=== PATIENT | female | born 1970 | race Hispanic/Latino ===

== ENCOUNTER 2016-10-08 23:11 | Emergency (ER) | payer MEDICARE, MEDICAID ==
[~2016-10-08] VITALS: Ht 154.9 cm; Wt 68.2 kg
[~2016-10-08 23:11] MED LIST: ATEN50TA7 PO; EFF375 PO; GLPZ10T PO; HYDR1TAB69 PO; INSU100V8 IJ; LORA10CA PO; METF-488 PO; MTC10T1 PO; OMEP20TA86 PO; PRA20 PO; ProAirHFA INH; ZLP10T PO; [UNRECOGNIZED DRUG - OTHER] SUBQ
[2016-10-08 23:27] VITALS: BP 122/81; PULSE 99; RESP 22; O2SAT 100
[2016-10-08 23:51] VITALS: BP 117/77; RESP 15; O2SAT 100
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
[2016-10-09] MEDS ORDERED: 0.9% Sodium Chloride 1,000 ML IV ONE ×2 (00:13→01:36)
[2016-10-09] MEDS ORDERED: Ondansetron 2 mg/mL 2 mL Inj IVPUSH ONE (00:15)
[2016-10-09 00:22] LABS: BASOPHILS % (AUTO) 0.9 % (0-3); EOSINOPHILS % (AUTO) 2.3 % (0-5); Mean Corpuscular Hemoglobin 29.5 pg (27.0-35.0); Mean Corpuscular Volume 83.7 fL (81-100); NEUTROPHILS % (AUTO) 61.5 % (40-74); Platelet Count 205 bil/L (150-400)
[2016-10-09 00:45] LABS: Magnesium 2.2 mg/dL (1.6-2.6)
[2016-10-09] MEDS ORDERED: Insulin Human REGular-Omnicell 100 Unit/mL IV ONE (01:15)
[2016-10-09] MEDS ORDERED: Ketorolac 15 mg/mL Inj IVPUSH ONE ×2 (01:40→02:20)
[2016-10-09] MEDS ORDERED: Haloperidol 5 mg/mL Inj IV ONE (01:40)
[2016-10-09 01:43] VITALS: BP 132/75; PULSE 90; RESP 14; O2SAT 100
[2016-10-09 01:43] LABS: APPEARANCE,URINE HAZY (CLEAR,HAZY); COLOR,URINE STRAW (YELLOW); OCCULT BLOOD,URINE TRACE (NEGATIVE); UROBILINOGEN,URINE NORMAL (NORMAL); YEAST,URINE MODERATE (NONE SEEN)
[2016-10-09] MEDS ORDERED: 0.9% Sodium Chloride 50 ML ONE (02:20)
[2016-10-09] MEDS ORDERED: MetoCLOpramide 5 mg/mL 2 mL Inj IM ONE (02:20)
[2016-10-09] MEDS ORDERED: Insulin Human REGular 300 Unit/3 mL Inj IV SCH (02:45)
[2016-10-09 03:39] VITALS: BP 125/66; PULSE 96; RESP 15; O2SAT 100
[2016-10-09 03:48] VITALS: BP 125/66; PULSE 96; RESP 15; O2SAT 100
--- NOTE | 2016-10-09 09:31 | DRSVH ---
PROCEDURE: X-RAY CHEST ONE VIEW, PORTABLE ([id number]) INDICATIONS: sob TECHNIQUE: One view of the chest was acquired. COMPARISON: None. FINDINGS: Surgical changes and devices: None. Lungs and pleura: No pleural effusions or pneumothorax. Lungs are clear. Mediastinum: Mediastinal contours appear normal. Heart size is normal. Bones and chest wall: No suspicious bony lesions. Overlying soft tissues appear unremarkable. IMPRESSION: 1. No acute cardiopulmonary disease. Dictated by: Tito Kwon M.D. on 10/09/2016 at 9:29 Approved by: Tito Kwon M.D. on 10/09/2016 at 9:29
== END 2016-10-09 03:49 | disposition home or self-care (01) ==
LOC: SED 23:11
DX: E11.65 Type 2 diabetes mellitus with hyperglycemia (principal); R06.4 Hyperventilation; F41.9 Anxiety disorder, unspecified; G43.909 Migraine, unspecified, not intractable, without status migrainosus; Z79.4 Long term (current) use of insulin
CPT/HCPCS: 36415; 71010; 80053; 81000; 81025; 82009; 82948; 83735; 83880; 85025; 87086; 96361; 96372; 96374; 96375; 96376; 99285; J1200; J1630; J1815; J1885; J2060; J2405; J2765; J7030